=== PATIENT | male | born 1990 ===

== ENCOUNTER 2016-09-10 10:28 | Emergency (ER) | payer MEDICAID, OTHER ==
--- NOTE | 2016-09-10 11:12 | C.PDOC ---
History Of Present Illness Patient is a 25 y/o male, with PMHx of homelessness, substance abuse, alcohol abuse, and psych history, is brought to the ED by EMS for agitation. Patient has been admitted to psych flood several times in the past. Pt admits to using "dope and alcohol". As per EMS, "pt became agitated, and began to scream and curse in the ambulance". Pt is complaining of generalized body aches. Pt is now calm and cooperative in the ER. Otherwise, denies any SI/HI, or any other physical complaints at this time. Time Seen by Provider: 09/10/16 10:51 Chief Complaint (Nursing): Substance Abuse History Per: Patient History/Exam Limitations: no limitations Onset/Duration Of Symptoms: Gradual Current Symptoms Are (Timing): Still Present Suicide/Self Injury Attempted (Context): None Modifying Factor(s): Alcohol, Other ("dope") Associated Symptoms: denies: Suicidal Thoughts, Suicidal Plan Recent travel outside of the [place]: No Additional History Per: EMS Past Medical History Reviewed: Historical Data, Nursing Documentation, Vital Signs Vital Signs: Last Vital Signs Temp 98.1 F 09/10/16 16:05 Pulse 71 09/10/16 16:05 Resp 16 09/10/16 16:05 BP 132/82 09/10/16 16:05 Pulse Ox 98 09/10/16 18:20 - Medical History PMH: Anxiety, Depression Denies: Diabetes, Hepatitis, HIV, HTN, Chronic Kidney Disease, Seizures, Sexually Transmitted Disease - [facility] Procedures ALCOHOL DETOXIFICATION (01/13/14) Family History: States: Unknown Family Hx - Social History Hx Tobacco Use: Yes Hx Alcohol Use: Yes Hx Substance Use: Yes (Cocaine/heroin) - Immunization History Hx Tetanus Toxoid Vaccination: No Hx Influenza Vaccination: No Hx Pneumococcal Vaccination: No Review Of Systems Except As Marked, All Systems Reviewed And Found Negative. Constitutional: Positive for: Other (generalized body aches). Negative for: Fever, Chills Cardiovascular: Negative for: Chest Pain, Palpitations Respiratory: Negative for: Shortness of Breath Gastrointestinal: Negative for: Nausea, Vomiting, Abdominal Pain Neurological: Negative for: Headache, Dizziness Psych: Negative for: Suicidal ideation, Other (Homicidal ideation) Physical Exam - Physical Exam Appears: Non-toxic, No Acute Distress Skin: Normal Color, Warm, Dry Head: Atraumatic, Normacephalic Eye(s): bilateral: Normal Inspection, EOMI Neck: Normal ROM, Supple Chest: Symmetrical, No Tenderness Cardiovascular: Rhythm Regular, No Murmur Respiratory: Normal Breath Sounds, No Rales, No Rhonchi, No Wheezing Gastrointestinal/Abdominal: Soft, No Tenderness Extremity: Normal ROM Neurological/Psych: Oriented x3, Normal Speech, Normal Cognition ED Course And Treatment - Laboratory Results Result Diagrams: 09/10/16 11:29 09/10/16 11:29 O2 Sat by Pulse Oximetry: 98 (on RA) Pulse Ox Interpretation: Normal Progress Note: Labs, CXR ordered and reviewed. On reassessment, pt is resting comfortably, no acute distress. Patient is medically cleared. Disposition - Disposition Disposition: HOME/ ROUTINE Disposition Time: 18:18 Condition: STABLE Additional Instructions: please follow up with your doctor. return to er with worsening symptoms or concerns. follow up as instructed by broke worker Instructions: Polysubstance Abuse (ED) - Clinical Impression Clinical Impression: Substance abuse - Scribe Statement The provider has reviewed the documentation as recorded by the Andreina Valenzuela Provider Attestation: All medical record entries made by the Migueibpaz were at my direction and personally dictated by me. I have reviewed the chart and agree that the record accurately reflects my personal performance of the history, physical exam, medical decision making, and the department course for this patient. I have also personally directed, reviewed, and agree with the discharge instructions and disposition.
--- NOTE | 2016-09-10 11:15 | RAD ---
PROCEDURE: CHEST RADIOGRAPH, 1 VIEW. Portable study 11:00. HISTORY: Detox/Psy COMPARISON: None available. FINDINGS: LUNGS: Clear. PLEURA: No pneumothorax or pleural fluid seen. CARDIOVASCULAR: Normal. OSSEOUS STRUCTURES: No significant abnormalities. VISUALIZED UPPER ABDOMEN: Normal. OTHER FINDINGS: None. IMPRESSION: No active disease.
[2016-09-10 11:42] LABS: CHLORIDE 101 mmol/L (98-107); POTASSIUM 3.6 mmol/L (3.6-5.2); SODIUM 138 mmol/L (132-148)
[2016-09-10 11:44] LABS: ALB/GLOB RATIO 1.3 (1.0-2.1); ALKALINE PHOSPHATASE 71 U/L (38-126); AST/SGOT 29 U/L (17-59); BILIRUBIN,TOTAL 0.7 mg/dL (0.2-1.3); CARBON DIOXIDE 25 mmol/L (22-30); GFR AFRICAN-AMERICAN > 60; TOTAL PROTEIN 6.9 g/dL (6.3-8.3)
[2016-09-10 11:45] LABS: ALCOHOL SERUM 92 mg/dl (0-10); ALT/SGPT 24 U/L (21-72); BLOOD UREA NITROGEN 5 mg/dL (9-20); CALCIUM 8.4 mg/dl (8.6-10.4); GLUCOSE,RANDOM 86 mg/dL (75-110)
[2016-09-10 11:59] LABS: BASO % 0.5 % (0.0-2.0); EOS % 0.7 % (0.0-4.0); LYMPH # 1.9 K/uL (1.0-4.3); LYMPH % 40.9 % (20.0-40.0); MEAN CELL VOLUME 80.9 fL (80.0-94.0); MEAN CORPUSCULAR HEMOGLOBIN 27.1 pg (27.0-31.0); MEAN CORPUSCULAR HGB CONC 33.5 g/dL (33.0-37.0); MONO # 0.4 K/uL (0.0-0.8); MONO % 8.9 % (0.0-10.0); RED CELL DISTRIBUTION WIDTH 13.5 % (11.5-14.5); WHITE BLOOD COUNT 4.6 K/uL (4.8-10.8)
[2016-09-10 12:04] LABS: RBC URINE 1 /hpf (0-3); URINE BILIRUBIN NEGATIVE (NEGATIVE); URINE BLOOD 1+ (NEGATIVE); URINE COLOR Yellow (YELLOW); URINE GLUCOSE (UA) NORMAL (Normal); URINE KETONE NEGATIVE (NEGATIVE); URINE LEUKOCYTE ESTERASE NEG Leu/uL (Negative); URINE PROTEIN NEGATIVE (NEGATIVE); URINE UROBILINOGEN NORMAL mg/dL (0.2-1.0); WBC URINE < 1 /hpf (0-5)
[2016-09-10 16:07] VITALS: O2SAT 98
[2016-09-10 18:33] VITALS: BP 115/75; PULSE 76; RESP 19; TEMP 99
== END 2016-09-10 18:41 | disposition home or self-care (01) ==
LOC: C.ER 10:28 → UNDOADMIN 16:59 → C.9E 16:59 → C.ER 18:41
DX: F19.10 Other psychoactive substance abuse, uncomplicated (principal); F41.9 Anxiety disorder, unspecified; F32.9 Major depressive disorder, single episode, unspecified; Z59.0 Homelessness
CPT/HCPCS: 71010; 80053; 81001; 85025; 99285; G0480

== ENCOUNTER 2016-09-17 15:12 | Emergency (ER) | payer SELFPAY ==
[2016-09-17] MEDS ORDERED: Sodium Chloride 0.9% 1,000 ML IV ONE (15:39)
[2016-09-17] MEDS ORDERED: Sodium Chloride 0.9% 1,000 ML ONE (15:49)
[2016-09-17 16:02] LABS: BASO % 0.7 % (0.0-2.0); EOS # 0.1 K/uL (0.0-0.7); EOS % 1.2 % (0.0-4.0); HEMATOCRIT 47.5 % (35.0-51.0); LYMPH # 3.2 K/uL (1.0-4.3); LYMPH % 48.9 % (20.0-40.0); MEAN CELL VOLUME 80.6 fL (80.0-94.0); MEAN CORPUSCULAR HEMOGLOBIN 26.7 pg (27.0-31.0); MEAN CORPUSCULAR HGB CONC 33.2 g/dL (33.0-37.0); MONO # 0.6 K/uL (0.0-0.8); MONO % 8.4 % (0.0-10.0); RED CELL DISTRIBUTION WIDTH 13.6 % (11.5-14.5); WHITE BLOOD COUNT 6.6 K/uL (4.8-10.8)
[2016-09-17 16:11] LABS: CHLORIDE 101 mmol/L (98-107); POTASSIUM 4.4 mmol/L (3.6-5.2); SODIUM 138 mmol/L (132-148)
[2016-09-17 16:13] LABS: GFR AFRICAN-AMERICAN > 60
[2016-09-17 16:14] LABS: ALB/GLOB RATIO 1.3 (1.0-2.1); ALKALINE PHOSPHATASE 67 U/L (38-126); ALT/SGPT 49 U/L (21-72); AST/SGOT 82 U/L (17-59); BILIRUBIN,TOTAL 0.7 mg/dL (0.2-1.3); BLOOD UREA NITROGEN 7 mg/dL (9-20); CALCIUM 8.8 mg/dl (8.6-10.4); CARBON DIOXIDE 28 mmol/L (22-30); GLUCOSE,RANDOM 88 mg/dL (75-110)
[2016-09-17 16:15] LABS: ALCOHOL SERUM < 10 mg/dl (0-10)
--- NOTE | 2016-09-17 17:05 | C.PDOC ---
History Of Present Illness 25-year-old male, presents to the emergency department with complaints of diffuse bod pain and nausea since this morning. No vomiting, fevers, chest pain or shortness of breath. patient used two bags of Heroin two days ago. Last drink was last night. Chief Complaint (Nursing): GI Problem History Per: Patient History/Exam Limitations: no limitations Onset/Duration Of Symptoms: Days Current Symptoms Are (Timing): Still Present Past Medical History Reviewed: Historical Data, Nursing Documentation, Vital Signs Vital Signs: Last Vital Signs Temp 97.9 F 09/17/16 17:22 Pulse 61 09/17/16 17:22 Resp 17 09/17/16 17:22 BP 128/81 09/17/16 17:22 Pulse Ox 97 09/17/16 17:22 - Medical History PMH: Anxiety, Depression Denies: Diabetes, Hepatitis, HIV, HTN, Chronic Kidney Disease, Seizures, Sexually Transmitted Disease - [facility] Procedures ALCOHOL DETOXIFICATION (01/13/14) Family History: States: No Known Family Hx - Social History Hx Tobacco Use: Yes Hx Alcohol Use: Yes Hx Substance Use: Yes (Cocaine/heroin) - Immunization History Hx Tetanus Toxoid Vaccination: No Hx Influenza Vaccination: No Hx Pneumococcal Vaccination: No Review Of Systems Except As Marked, All Systems Reviewed And Found Negative. Constitutional: Positive for: Malaise. Negative for: Fever, Chills Cardiovascular: Negative for: Chest Pain Respiratory: Negative for: Shortness of Breath Gastrointestinal: Positive for: Nausea. Negative for: Vomiting Neurological: Negative for: Weakness, Numbness Physical Exam - Physical Exam Appears: Non-toxic, No Acute Distress Skin: Normal Color, Warm, Dry Head: Atraumatic, Normacephalic Eye(s): bilateral: Normal Inspection, PERRL, EOMI Nose: Normal Throat: Normal Neck: Normal Cardiovascular: Rhythm Regular Respiratory: Normal Breath Sounds Gastrointestinal/Abdominal: Normal Exam Back: Normal Inspection Extremity: Normal ROM ED Course And Treatment - Laboratory Results Result Diagrams: 09/17/16 15:59 09/17/16 15:59 O2 Sat by Pulse Oximetry: 98 Medical Decision Making Medical Decision Makin:10pm: Patient feeling better. Labs reviewed. Patient to be discharged with Rx and follow up instructions. Disposition - Disposition Referrals: [facility] [Outside] [facility] [Outside] Disposition: HOME/ ROUTINE Disposition Time: 17:45 Condition: IMPROVED Additional Instructions: Thank you for letting us take care of you today. You were treated for effects of drug abuse. The emergency medical care you received today was directed at your acute symptoms. If you were prescribed any medication, please fill it and take as directed. It may take several days for your symptoms to resolve. Return to the Emergency Department if your symptoms worsen, do not improve, or if you have any other problems. Please contact your doctor or call one of the physicians/clinics you have been referred to that are listed on the Patient Visit Information form that is included in your discharge packet. Bring any paperwork you were given at discharge with you along with any medications you are taking to your follow up visit. Our treatment cannot replace ongoing medical care by a primary care provider (PCP) outside of the emergency department. Thank you for allowing the [facility] team to be part of your care today. Follow up in the clinic in 3-4 days for outpatient care. Prescriptions: Ondansetron ODT [Zofran ODT] 8 mg PO Q8 PRN #20 odt PRN Reason: Nausea/Vomiting Instructions: Polysubstance Abuse (ED) - Clinical Impression Clinical Impression: Drug abuse - Scribe Statement The provider has reviewed the documentation as recorded by the Migueibpaz Del Cid All medical record entries made by the Migueibpaz were at my direction and personally dictated by me. I have reviewed the chart and agree that the record accurately reflects my personal performance of the history, physical exam, medical decision making, and the department course for this patient. I have also personally directed, reviewed, and agree with the discharge instructions and disposition.
[2016-09-17 17:25] LABS: RBC URINE 5 /hpf (0-3); URINE BACTERIA RARE (<OCC); URINE BILIRUBIN NEGATIVE (NEGATIVE); URINE BLOOD NEGATIVE (NEGATIVE); URINE COLOR Yellow (YELLOW); URINE GLUCOSE (UA) NORMAL (Normal); URINE KETONE NEGATIVE (NEGATIVE); URINE LEUKOCYTE ESTERASE NEG Leu/uL (Negative); URINE PROTEIN 1+ mg/dL (NEGATIVE); WBC URINE 3 /hpf (0-5)
[2016-09-17] MEDS ORDERED: guaiFENesin 100 mg/5 ml Syrup UD PO STA (18:46)
[2016-09-17] MEDS ORDERED: guaiFENesin 100 mg/5 ml Syrup UD ONE (18:54)
[2016-09-17 19:30] VITALS: RESP 20
[2016-09-17 21:35] VITALS: BP 116/75; PULSE 66; TEMP 98.7; O2SAT 96
--- NOTE | 2016-09-18 09:19 | RAD ---
HISTORY: r/o infiltrate COMPARISON: 09/10/2016 TECHNIQUE: Chest PA and lateral FINDINGS: LUNGS: No active pulmonary disease. PLEURA: No significant pleural effusion identified. No pneumothorax apparent. CARDIOVASCULAR: Normal. OSSEOUS STRUCTURES: No significant abnormalities. VISUALIZED UPPER ABDOMEN: Normal. OTHER FINDINGS: None. IMPRESSION: No active disease.
--- NOTE | 2016-09-18 12:52 | CARD ---
APPROVED REPORT EKG Measurement Heart [id number] <Conclusion> Sinus bradycardia Early repolarization Otherwise normal ECG
== END 2016-09-17 22:16 | disposition short-term general hospital (02) ==
LOC: C.ER 15:12
DX: F19.10 Other psychoactive substance abuse, uncomplicated (principal); F33.9 Major depressive disorder, recurrent, unspecified; F17.210 Nicotine dependence, cigarettes, uncomplicated
CPT/HCPCS: 71020; 80053; 81001; 83690; 85025; 93005; 94770; 96361; 96374; 96375; 99284; G0480; J2405; J7040

== ENCOUNTER 2016-10-16 07:29 | Observation (INO) | payer OTHER ==
--- NOTE | 2016-10-16 08:14 | C.PDOC ---
History Of Present Illness 25-year-old male, is to the emergency department by EMS, after being seen walking around on street with unsteady gait. Patient admits to using "dope." States "I snort it." Patient denies SI or any other complaints. Time Seen by Provider: 10/16/16 07:37 Chief Complaint (Nursing): Substance Abuse History Per: Patient, EMS History/Exam Limitations: intoxication Current Symptoms Are (Timing): Still Present Modifying Factor(s): Other ("dope") Past Medical History Reviewed: Historical Data, Nursing Documentation, Vital Signs Vital Signs: Last Vital Signs Temp 98.2 F 10/16/16 10:45 Pulse 58 L 10/16/16 13:13 Resp 17 10/16/16 13:13 BP 135/71 10/16/16 13:13 Pulse Ox 94 L 10/16/16 15:57 - Medical History PMH: Anxiety, Depression - [facility] Procedures ALCOHOL DETOXIFICATION (01/13/14) Family History: States: Other Other Family History: non-contributory - Social History Hx Tobacco Use: Yes Hx Alcohol Use: Yes Hx Substance Use: Yes (Cocaine/heroin) - Immunization History Hx Tetanus Toxoid Vaccination: No Hx Influenza Vaccination: No Hx Pneumococcal Vaccination: No Review Of Systems Constitutional: Negative for: Fever Cardiovascular: Negative for: Chest Pain, Palpitations Respiratory: Negative for: Shortness of Breath Gastrointestinal: Negative for: Vomiting Psych: Negative for: Suicidal ideation Physical Exam - Physical Exam Appears: Non-toxic, No Acute Distress, Unkempt, Other (Sleepy. Easily aroused) Skin: Warm, Dry, No Rash Head: Atraumatic, Normacephalic Eye(s): bilateral: Normal Inspection Neck: Normal ROM Cardiovascular: Rhythm Regular, No Murmur Respiratory: No Accessory Muscle Use Extremity: Normal ROM Neurological/Psych: Oriented x3 ED Course And Treatment O2 Sat by Pulse Oximetry: 94 Medical Decision Making Medical Decision Makin pt now A&Ox3, tolerating po, and ambulatory with steady gait ED OBSERVATION Discharge: Yes Date of observation admission: 10/16/16 Time of observation admission: 07:48 - Observation admission statement Patient is being placed in observation because:: Intoxication - Goals of Observation Goals of observation are:: Sobriety Disposition - Disposition Disposition: HOME/ ROUTINE Disposition Time: 15:57 Condition: IMPROVED - Clinical Impression Clinical Impression: Drug abuse - PA / STATION MASTER / Resident Statement MD/DO has reviewed & agrees with the documentation as recorded. - Scribe Statement The provider has reviewed the documentation as recorded by the Scribe (Marco Antonio Del Cid) All medical record entries made by the Scribe were at my direction and personally dictated by me. I have reviewed the chart and agree that the record accurately reflects my personal performance of the history, physical exam, medical decision making, and the department course for this patient. I have also personally directed, reviewed, and agree with the discharge instructions and disposition.
[2016-10-16 10:46] VITALS: TEMP 98.2
[2016-10-16 13:13] VITALS: BP 135/71; PULSE 58; RESP 17
[2016-10-16 15:58] VITALS: O2SAT 94
== END 2016-10-16 15:57 | disposition home or self-care (01) ==
LOC: C.ER 07:29 → C.9OBSV 07:45
PROVIDERS: ADMIT Emergency Medicine; ATTEND Emergency Medicine
DX: F19.10 Other psychoactive substance abuse, uncomplicated (principal); Z87.891 Personal history of nicotine dependence
CPT/HCPCS: 82948; 99284; G0378

== ENCOUNTER 2016-12-31 14:57 | Emergency (ER) | payer MEDICAID, OTHER ==
[2016-12-31 14:57] VITALS: BMI 26.9
[2016-12-31 15:18] VITALS: RESP 18; O2SAT 98
--- NOTE | 2016-12-31 15:46 | C.PDOC ---
History Of Present Illness Patient is a 26 y/o homeless male who presents to the ED requesting detox for alcohol and drug abuse. Last use of heroin was snorted yesterday; last drink was a beer yesterday. Usually drinks daily. Patient complains of body aches, but denies any other medical problems at this time. Time Seen by Provider: 12/31/16 15:30 Chief Complaint (Nursing): Substance Abuse History Per: Patient History/Exam Limitations: no limitations Onset/Duration Of Symptoms: Days Current Symptoms Are (Timing): Still Present Modifying Factor(s): Alcohol, Other (heroin.) Recent travel outside of the [place]: No Past Medical History Reviewed: Historical Data, Nursing Documentation, Vital Signs Vital Signs: Last Vital Signs Temp 98.1 F 12/31/16 15:15 Pulse 72 12/31/16 15:15 Resp 18 12/31/16 15:15 BP 133/66 12/31/16 15:15 Pulse Ox 98 12/31/16 18:25 - Medical History PMH: Anxiety, Depression Denies: Atrial Fibrillation, HIV, HTN, Kidney Stones, Chronic Kidney Disease , Seizures, Sexually Transmitted Disease Surgical History: No Surg Hx - [facility] Procedures ALCOHOL DETOXIFICATION (01/13/14) Family History: States: No Known Family Hx - Social History Hx Tobacco Use: Yes Hx Alcohol Use: Yes Hx Substance Use: Yes - Immunization History Hx Tetanus Toxoid Vaccination: No Hx Influenza Vaccination: No Hx Pneumococcal Vaccination: No Review Of Systems Constitutional: Negative for: Fever, Chills Cardiovascular: Negative for: Chest Pain Respiratory: Negative for: Shortness of Breath Gastrointestinal: Negative for: Nausea, Vomiting Physical Exam - Physical Exam Appears: In Acute Distress, Other (tremulous.) Skin: Normal Color, Warm, Dry Head: Atraumatic, Normacephalic Oral Mucosa: Moist Chest: Symmetrical Cardiovascular: Rhythm Regular, No Murmur Respiratory: Normal Breath Sounds, No Rales, No Rhonchi, No Wheezing Gastrointestinal/Abdominal: Soft, No Tenderness Neurological/Psych: Oriented x3, Normal Cognition ED Course And Treatment - Laboratory Results Result Diagrams: 12/31/16 16:53 12/31/16 16:53 O2 Sat by Pulse Oximetry: 98 (Room air) Pulse Ox Interpretation: Normal Medical Decision Making Medical Decision Making: Plan: Blood work and urinalysis ordered. Disposition Counseled Patient/Family Regarding: Studies Performed, Diagnosis - Disposition Disposition: HOSPITALIZED Disposition Time: 18:25 Condition: GUARDED - Clinical Impression Clinical Impression: Drug dependence - Scribe Statement The provider has reviewed the documentation as recorded by the Scribe Oliva Brown All medical record entries made by the Scribe were at my direction and personally dictated by me. I have reviewed the chart and agree that the record accurately reflects my personal performance of the history, physical exam, medical decision making, and the department course for this patient. I have also personally directed, reviewed, and agree with the discharge instructions and disposition. Physician Patient Turnover Patient Signed Over To: Mina Viveros Handoff Comments: pending final dispo by crisis, needs admit order Decision To Admit - Pt Status Changed To: Hospital Disposition Of: Inpatient - Admit Certification Admit to Inpatient:: After my assessment, the patient will require hospitalization for at least two midnights. This is because of the severity of symptoms shown, intensity of services needed, and/or the medical risk in this patient being treated as an outpatient. - InPatient: Physician Admission Certification: I certify that this patient requires 2 or more midnights of care for the following reason:: needs inpatient detox - . Bed Request Type: Detox Admitting Physician: Itzel Jerry Patient Diagnosis: Drug dependence
[2016-12-31 16:55] LABS: BASO % 0.5 % (0.0-2.0); EOS % 0.3 % (0.0-4.0); HEMATOCRIT 47.3 % (35.0-51.0); LYMPH # 1.3 K/uL (1.0-4.3); MEAN CELL VOLUME 81.6 fL (80.0-94.0); MEAN CORPUSCULAR HEMOGLOBIN 27.1 pg (27.0-31.0); MEAN CORPUSCULAR HGB CONC 33.2 g/dL (33.0-37.0); MEAN PLATELET VOLUME 7.7 fL (7.2-11.7); MONO # 0.4 K/uL (0.0-0.8); MONO % 6.3 % (0.0-10.0); NRBC % 0.1 % (0.0-2.0); RED CELL DISTRIBUTION WIDTH 13.3 % (11.5-14.5); WHITE BLOOD COUNT 5.8 K/uL (4.8-10.8)
[2016-12-31 17:09] LABS: CHLORIDE 100 mmol/L (98-107)
[2016-12-31 17:10] LABS: POTASSIUM 4.3 mmol/L (3.6-5.2); SODIUM 136 mmol/L (132-148)
[2016-12-31 17:12] LABS: ALB/GLOB RATIO 1.3 (1.0-2.1); ALKALINE PHOSPHATASE 77 U/L (38-126); ALT/SGPT 41 U/L (21-72); AST/SGOT 61 U/L (17-59); BLOOD UREA NITROGEN 12 mg/dL (9-20); CARBON DIOXIDE 26 mmol/L (22-30); GFR AFRICAN-AMERICAN > 60; GLUCOSE,RANDOM 127 mg/dL (75-110); TOTAL PROTEIN 7.5 g/dL (6.3-8.3)
[2016-12-31 17:13] LABS: ALCOHOL SERUM < 10 mg/dl (0-10); CALCIUM 8.8 mg/dl (8.6-10.4)
[2016-12-31 17:24] LABS: RBC URINE 17 /hpf (0-3); URINE BACTERIA RARE (<OCC); URINE BILIRUBIN NEGATIVE (NEGATIVE); URINE BLOOD 2+ (NEGATIVE); URINE COLOR Yellow (YELLOW); URINE GLUCOSE (UA) NORMAL (Normal); URINE KETONE 2+ mg/dL (NEGATIVE); URINE LEUKOCYTE ESTERASE NEG Leu/uL (Negative); URINE PROTEIN 1+ mg/dL (NEGATIVE); WBC URINE 2 /hpf (0-5)
[2016-12-31 20:57] VITALS: BP 122/79; PULSE 96; TEMP 98.4
== END 2016-12-31 21:22 | disposition home or self-care (01) ==
LOC: C.ER 14:57
DX: F19.20 Other psychoactive substance dependence, uncomplicated (principal)
CPT/HCPCS: 36415; 80053; 81001; 85025; 99285; G0480

== ENCOUNTER 2017-05-02 14:29 | Inpatient (IN) | payer MEDICAID, OTHER ==
[2017-05-02 14:29] VITALS: BMI 23.1
--- NOTE | 2017-05-02 15:26 | C.PDOC ---
History Of Present Illness 26 y/o male with history of depression presents to ED for psych evaluation. Patient states he feels depressed and has suicidal ideation with plan of "cutting himself". Patient has prior psych evaluations and admits to smoking and drinking etoh. Patient reports last drink was yesterday and currently denies any withdrawal signs, homicidal ideation, chest pain, nausea or any other complaints at this time. Time Seen by Provider: 05/02/17 14:58 Chief Complaint (Nursing): Psychiatric Evaluation History Per: Patient History/Exam Limitations: no limitations Onset/Duration Of Symptoms: Days Current Symptoms Are (Timing): Still Present Suicide/Self Injury Attempted (Context): None Modifying Factor(s): Alcohol Past Medical History Reviewed: Historical Data, Nursing Documentation, Vital Signs Vital Signs: Last Vital Signs Temp 97.6 F 05/02/17 14:34 Pulse 86 05/02/17 14:34 Resp 18 05/02/17 14:34 BP 119/71 05/02/17 14:34 Pulse Ox 100 05/02/17 17:35 - Medical History PMH: Anxiety, Depression Surgical History: No Surg Hx - [facility] Procedures ALCOHOL DETOXIFICATION (01/13/14) Family History: States: No Known Family Hx - Social History Hx Tobacco Use: Yes Hx Alcohol Use: Yes Hx Substance Use: Yes - Immunization History Hx Tetanus Toxoid Vaccination: No Hx Influenza Vaccination: No Hx Pneumococcal Vaccination: No Review Of Systems Constitutional: Negative for: Fever, Chills Gastrointestinal: Negative for: Nausea, Vomiting Skin: Negative for: Rash Neurological: Negative for: Weakness, Numbness, Headache Psych: Positive for: Depression, Suicidal ideation. Negative for: Withdrawal Physical Exam - Physical Exam Appears: Non-toxic, No Acute Distress Skin: Normal Color, Warm, Dry, No Rash Head: Atraumatic, Normacephalic Eye(s): bilateral: Normal Inspection Oral Mucosa: Moist Neck: Normal ROM, Supple Cardiovascular: Rhythm Regular Respiratory: Normal Breath Sounds, No Rales, No Rhonchi, No Wheezing Gastrointestinal/Abdominal: Soft, No Tenderness, No Guarding, No Rebound Extremity: Normal ROM, Capillary Refill (<2 seconds) Neurological/Psych: Oriented x3 ED Course And Treatment - Laboratory Results Result Diagrams: 05/02/17 15:22 05/02/17 15:22 Lab Interpretation: Normal O2 Sat by Pulse Oximetry: 100 (RA) Pulse Ox Interpretation: Normal Progress Note: Case discussed and patient evaluated by needleworker who discussed case with Dr Crain who agrees to psych admission. Patient admitted in stable condition Reassessment Condition: Unchanged - Physician Consult Information Physician Contacted: Loida Crain Outcome Of Conversation: admit Medical Decision Making Medical Decision Making: Plan: ED 1:1 observation ordered, Crisis evaluation Disposition Discussed With Dr.: Loida Crain Doctor Will See Patient In The: Hospital - Disposition Disposition: HOSPITALIZED Disposition Time: 15:45 Condition: STABLE Forms: [facility] (Hebrew) - POA Present On Arrival: None - Clinical Impression Clinical Impression: Depression - PA / IRRIGATION SPECIALIST / Resident Statement MD/DO has reviewed & agrees with the documentation as recorded. - Scribe Statement The provider has reviewed the documentation as recorded by the Migueibpaz Pinto All medical record entries made by the Migueibpaz were at my direction and personally dictated by me. I have reviewed the chart and agree that the record accurately reflects my personal performance of the history, physical exam, medical decision making, and the department course for this patient. I have also personally directed, reviewed, and agree with the discharge instructions and disposition. Decision To Admit - Pt Status Changed To: Hospital Disposition Of: Inpatient - Admit Certification Admit to Inpatient:: After my assessment, the patient will require hospitalization for at least two midnights. This is because of the severity of symptoms shown, intensity of services needed, and/or the medical risk in this patient being treated as an outpatient. - InPatient: Physician Admission Certification: I certify that this patient requires 2 or more midnights of care for the following reason:: Depression - . Bed Request Type: Psychiatry Admitting Physician: Loida Crain Patient Diagnosis: Depression
[2017-05-02 15:27] LABS: BASO % 0.6 % (0.0-2.0); EOS # 0.1 K/uL (0.0-0.7); EOS % 1.8 % (0.0-4.0); HEMOGLOBIN 15.2 g/dL (12.0-18.0); LYMPH # 2.2 K/uL (1.0-4.3); LYMPH % 37.6 % (20.0-40.0); MEAN CELL VOLUME 83.5 fL (80.0-94.0); MEAN CORPUSCULAR HGB CONC 33.6 g/dL (33.0-37.0); MEAN PLATELET VOLUME 7.5 fL (7.2-11.7); MONO # 0.4 K/uL (0.0-0.8); MONO % 6.9 % (0.0-10.0); NEUT # 3.1 K/uL (1.8-7.0); NEUT % 53.1 % (50.0-75.0); RBC 5.43 Mil/uL (4.40-5.90); RED CELL DISTRIBUTION WIDTH 13.4 % (11.5-14.5); WHITE BLOOD COUNT 5.8 K/uL (4.8-10.8)
[2017-05-02 15:41] LABS: ALB/GLOB RATIO 1.3 (1.0-2.1); ALT/SGPT 32 U/L (21-72); AST/SGOT 40 U/L (17-59); BLOOD UREA NITROGEN 13 mg/dL (9-20); CALCIUM 8.9 mg/dl (8.6-10.4); GFR AFRICAN-AMERICAN > 60; GFR NON-AFRICAN AMERICAN > 60
[2017-05-02 16:32] LABS: BARBITURATES, UR NEGATIVE (NEGATIVE); BENZODIAZEPINES, UR NEGATIVE (NEGATIVE); PHENCYCLIDINE, UR NEGATIVE (NEGATIVE)
[2017-05-02 16:33] LABS: OPIATES, UR POSITIVE (NEGATIVE)
[2017-05-02 16:37] LABS: URINE BACTERIA OCC (<OCC); URINE BILIRUBIN NEGATIVE (NEGATIVE); URINE BLOOD 1+ (NEGATIVE); URINE CLARITY Hazy (Clear); URINE COLOR Yellow (YELLOW); URINE GLUCOSE (UA) NORMAL (Normal); URINE LEUKOCYTE ESTERASE 3+ Leu/uL (Negative); URINE NITRATE NEGATIVE (NEGATIVE); URINE PROTEIN NEGATIVE (NEGATIVE)
--- NOTE | 2017-05-02 19:21 | PCM.BM ---
<AbrahamCindi becerra - Last Filed: 05/02/17 19:19> Treatment Plan Problems - Problems identified on initial assessmt Depression Date Initiated: 05/02/17 Time Initiated: 18:40 Assessment reference: NA Status: Active Anxiety Date Initiated: 05/02/17 Time Initiated: 18:40 Assessment reference: NA Status: Active Substance Abuse Date Initiated: 05/02/17 Time Initiated: 18:40 Assessment reference: NA Status: Active Treatment assets and liabiliti Patient Assests: adapts well, cooperative, ADL independent, physically healthy, negotiates basic needs, cognitively intact Patient Liabilities: live alone, financial problems, substance abuse - Milieu Protocol Maintain good personal hygiene: daily Encourage regular showers, daily Remind patient to perform daily oral care, daily Assist patient to perform ADL's Conduct patient checks and document Observation sheet: Q15 minutes Maintain personal safety: every shift Educate patient to report safety concerns to staff, every shift Monitor environment for contraband/sharps Medication safety: Monitor for expected outcome, potential side effects: every shift, Assess barriers to learning: every shift, Assess readiness for medication education: every shift <Rosalino,Itzel - Last Filed: 05/04/17 11:01> - Diagnosis (1) Depression Status: Acute Interventions: 05/04/17 11:01 * Assess/adjust medications daily and /or as needed * See patient on an individual basis 7x/week to assess symptoms of depression * Monitor for side effects & effectiveness of medications * (2) Alcohol withdrawal Status: Acute Interventions: 05/04/17 11:01 * Assess 7x/week regarding severity of withdrawal * Educate regarding risks, benefits, side effects and alternatives of medications * Use Motivational Interviewing for abstinence * Use CBT for relapse prevention * Medication management for withdrawal symptoms * Encourage medication assisted treatment *
[2017-05-03] MEDS: Multiple Vitamins Tab PO SCH (09:37)
--- NOTE | 2017-05-03 20:54 | PCM.PSYCH ---
Initial Psychiatric Evaluation - Initial Psychiatric Evaluation Type of Admission: Voluntary Legal Status: Capacity Chief Complaint (in patient's own words): I was feeling depressed and suicidal.' History of Present Illness and Precipitating Events: Pt is a 26 year old HM, currently homeless and unemployed, came to the ED for depressed mood and suicidal ideation. As per the ED notes, ''pt reported suicidal ideation since 1 day and denied a specific plan to harm himself. He denied any previous suicide attempts in the past, but stated the suicidal thoughts were prompted yesterday because "of life. " Pt stated he has been homeless for several months since incarcerated. Pt stated he has family in the area, but has not reached out to them, and "wouldn' t say" he has a poor relationship where he could not ask for help. Pt stated he has a history of psychiatric admissions in 2014 at [facility] and in 2017 at [facility], following transfer from [facility]. Pt stated he has a history of cutting in the past to "relieve tension," but has not had an episode or urges in "years. " Pt denied following up with aftercare following both admissions, nor has he been on psychiatric medication in the past aside from when he is in the hospital. Pt reported that he drinks alcohol daily, last use yesterday when he consumed 5-6 beers. Pt stated he sniffed an unspecified amount of cocaine x2 days ago. Pt states he has attended [employer] 2-3 years ago. Pt also reported that he is abusing 2-3 bags of heroin daily, last used yesterday.'' Pt remained isolated and withdrawn in the unit. He reports depressed mood and feelings of hopelessness and worthlessness. He reports withdrawal symptoms, including nausea, cramps, anxiety, headaches and joint pains. He denies any HI. He also denies any AVH or any delusions. PMH: UTI (current) Current Medications: Active Medications Generic Name Dose Route Start Last Admin Trade Name Freq PRN Reason Stop Dose Admin Ciprofloxacin 500 mg 05/03/17 10:30 05/03/17 17:56 Cipro PO 500 mg BID WISAM Administration Clonidine HCl 0.1 mg 05/02/17 17:55 Catapres PO Q8 PRN COWS Score More or Equal to 5 Folic Acid 1 mg 05/03/17 10:00 05/03/17 09:37 Folic Acid PO 1 mg DAILY WISAM Administration Hydroxyzine HCl 25 mg 05/02/17 21:45 Atarax PO TID PRN Anxiety Ibuprofen 400 mg 05/02/17 17:55 Motrin Tab PO Q6 PRN Pain, moderate (4-7) Loperamide HCl 2 mg 05/02/17 17:55 Imodium PO Q8 PRN Diarrhea Multivitamins 1 tab 05/03/17 10:00 05/03/17 09:37 Hexavitamin PO 1 tab DAILY WISAM Administration Ondansetron HCl 4 mg 05/02/17 17:55 Zofran Tab PO Q8 PRN Nausea/Vomiting Thiamine HCl 100 mg 05/03/17 10:00 05/03/17 09:37 Vitamin B1 Tab PO 100 mg DAILY WISAM Administration Trazodone HCl 50 mg 05/03/17 22:00 Desyrel PO HS WISAM Past Psychiatric History - Past Psychiatric History Previous Treatment History: Inpatient Pertinent Medical Hx (Current Medical&Sleep Prob, Allergies): Allergies Allergy/AdvReac Type Severity Reaction Status Date / Time No Known Allergies Allergy Verified 12/31/16 15:27 No Known Home Med 09/17/16 No Known Home Med 10/16/16 Review of Systems - Review of Systems All systems: reviewed and no additional remarkable complaints except - Psychiatric Psychiatric: Anxiety, Irritability, Suicidal Ideation Mental Status Examination - Personal Presentation Personal Presentation: Looks stated age - Affect Affect: Constricted, Depressed - Motor Activity Motor Activity: Calm - Reliability in Providing Information Reliability in Providing Information: Fair - Speech Speech: Organized - Mood Mood: Depressed, Anxious - Formal Thought Process Formal Thought Process: No Impairment - Obsessions/Compulsions Obsessions: No Compulsions: No - Cognitive Functions Orientation: Person, Place, Situation, Time Sensorium: Alert Attention/Concentration: Attentive Abstract Thinking: [place] Estimate of Intelligence: Below average Judgement: Imparied, as evidence by: Poor judgement, Imparied, as evidence by: Lack of insight into illness - Risk Risk: Suicidal, Withdrawal, Diminished functioning - Strength & Assets Inventory Strength & Assets Inventory: Intelligence - Limitations Limitations: Living alone DSM 5 DX - DSM 5 DSM 5 Diagnosis: Major depressive disorder recurrent severe without psychotic features Opioid use disorder severe Opioid withdrawal Alcohol use disorder severe Cocaine use disorder moderate - Recommended/Plan of Treatment Treatment Recommendations and Plan of Treatment: Major depressive disorder recurrent severe without psychotic features CBT Psychoeducation Supportive therapy, group therapy, individual therapy Paxil 10 mg by mouth twice a day Neurontin 100 mg by mouth 3 times a day Trazodone 50 mg by mouth daily at bedtime Opioid use disorder severe CBT Psychoeducation Supportive therapy, individual therapy Use GA for abstinence Opioid withdrawal CBT Psychoeducation Supportive therapy, individual therapy Clonidine when necessary Methadone taper Alcohol use disorder severe CBT Psychoeducation Supportive therapy, individual therapy Use GA for abstinence Cocaine use disorder moderate Monitor signs and symptoms Use GA for abstinence UTI Start antibiotics - Smoking Cessation Smoking Cessation Initiated: No
[2017-05-04 06:38] VITALS: TEMP 98.1
[2017-05-04] MEDS: Multiple Vitamins Tab PO SCH (09:36)
--- NOTE | 2017-05-04 10:57 | PCM.PYCHPN ---
Psychiatric Progress Note - Psychiatric Progress Note Patient seen today, length of contact: 15 min Patient Chief Complaint: I was feeling depressed and suicidal.' Problems Identified/Issues Discussed: Patient seen and evaluated, chart reviewed and discussed with the nurse. Patient reports depressed mood and at times feelings of hopelessness and helplessness. As per the staff patient remained isolated and withdrawn. Patient also reports withdrawal symptoms including cramps, nausea, anxiety, and headaches. He is compliant with the medications and denies any side effects. He needs more time for stabilization. Supportive therapy and psychoeducation were given. Medication Change: Yes (methadone taper) Medical Record Reviewed: Yes Mental Status Examination - Cognitive Function Orientation: Person, Place, Situation, Time Memory: Intact Attention: WNL Concentration: Poor Fund of Knowledge: Poor - Mood Mood: Depressed, Anxious - Affect Affect: Constricted, Depressed - Speech Speech: Soft - Formal Thought Process Formal Thought Process: No Impairment - Suicidal Ideation Suicidal Ideation: No - Homicidal Ideation Homicidal Ideation: No Goal/Treatment Plan - Goal/Treatment Plan Need for Continued Stay: Severe depression anxiety, Severe functional impairment Progress Toward Problem(s) and Goals/Treatment Plan: Major depressive disorder recurrent severe without psychotic features CBT Psychoeducation Supportive therapy, group therapy, individual therapy Paxil 10 mg by mouth twice a day Neurontin 100 mg by mouth 3 times a day Trazodone 50 mg by mouth daily at bedtime Opioid use disorder severe CBT Psychoeducation Supportive therapy, individual therapy Use [place] for abstinence Opioid withdrawal CBT Psychoeducation Supportive therapy, individual therapy Clonidine when necessary Methadone taper Alcohol use disorder severe CBT Psychoeducation Supportive therapy, individual therapy Use NC for abstinence Cocaine use disorder moderate Monitor signs and symptoms Use NC for abstinence UTI Start antibiotics - Smoking Cessation Smoking Cessation Initiated: No
[2017-05-05 06:28] VITALS: BP 113/78; PULSE 72; RESP 20; O2SAT 98
[2017-05-05] MEDS: Multiple Vitamins Tab PO SCH (10:19)
--- NOTE | 2017-05-05 17:47 | PCM.PYCHDC ---
Mental Status Examination - Mental Status Examination Orientation: Person Discharge Summary - Discharge Note Consultations:: List each consultation separately and include: 1. Reason for request. 2. Findings. 3. Follow-up Summary of Hospital Course include:: 1. Description of specific treatment plan utilized for patients during their course of treatmen. 2. Summarize the time- course for resolution of acute symptoms and/or regressed behaviors. 3. Describe issues identified and worked on during hospitalization. 4. Describe medication utilized. 5. Describe medical problems identified and treated. 6. Reassessment of suicide risk - Final Diagnosis (DSM 5) Condition upon Discharge: IMPROVED DSM 5: Major depressive disorder recurrent severe without psychotic features Opioid use disorder severe Opioid withdrawal Alcohol use disorder severe Cocaine use disorder moderate Disposition: AGAINST MEDICAL ADVICE
== END 2017-05-05 15:30 | disposition left against medical advice (07) | DRG 430 ==
LOC: C.ER 14:29 → C.5E 17:32
PROVIDERS: ADMIT Psychiatry & Neurology Psychiatry; ATTEND Psychiatry & Neurology Psychiatry
PROC: GZ3ZZZZ Medication Management (ICD-10-PCS; principal; 2017-05-02)
PROC: GZHZZZZ Group Psychotherapy (ICD-10-PCS; 2017-05-02)
PROC: GZ56ZZZ Individual Psychotherapy, Supportive (ICD-10-PCS; 2017-05-02)
PROC: HZ89ZZZ Medication Management for Substance Abuse Treatment, Other Replacement Medication (ICD-10-PCS; 2017-05-02)
PROC: HZ46ZZZ Group Counseling for Substance Abuse Treatment, Psychoeducation (ICD-10-PCS; 2017-05-02)
PROC: HZ56ZZZ Individual Psychotherapy for Substance Abuse Treatment, Psychoeducation (ICD-10-PCS; 2017-05-02)
DX: F33.2 Major depressive disorder, recurrent severe without psychotic features (principal); F11.23 Opioid dependence with withdrawal; F14.20 Cocaine dependence, uncomplicated; R45.851 Suicidal ideations; F10.239 Alcohol dependence with withdrawal, unspecified; N39.0 Urinary tract infection, site not specified; F41.9 Anxiety disorder, unspecified; Z59.0 Homelessness; Z87.891 Personal history of nicotine dependence; Z91.5 Personal history of self-harm

== ENCOUNTER 2018-04-13 10:15 | Emergency (ER) | payer MEDICAID ==
[2018-04-13 10:15] VITALS: BMI 23.1
[2018-04-13 10:25] VITALS: BP 130/78; PULSE 89; RESP 17; TEMP 98.9; O2SAT 98
== END 2018-04-13 10:35 | disposition left against medical advice (07) ==
LOC: C.ER 10:15
DX: Z02.89 Encounter for other administrative examinations (principal); M25.562 Pain in left knee

== ENCOUNTER 2018-06-14 21:21 | Emergency (ER) | payer MEDICAID ==
[2018-06-14 21:21] VITALS: BMI 28.7
--- NOTE | 2018-06-14 21:33 | C.PDOC ---
Time Seen by Provider: 06/14/18 21:28 Chief Complaint (Nursing): Medical Clearance Past Medical History - Medical History PMH: Anxiety, Depression Denies: Atrial Fibrillation, Diabetes, Hepatitis, HIV, HTN, Kidney Stones, Chronic Kidney Disease, Seizures, Sexually Transmitted Disease - [facility] Procedures ALCOHOL DETOXIFICATION (01/13/14) GROUP GASOLINE CATALYST OPERATOR FOR SUBSTANCE ABUSE TREATMENT, PSYCHOEDUCATION (05/02/17) GROUP PSYCHOTHERAPY (04/19/18) INDIV PSYCHOTHERAPY FOR SUBSTANCE ABUSE, PSYCHOEDUCATION (05/02/17) INDIVIDUAL PSYCHOTHERAPY, SUPPORTIVE (05/02/17) MEDICATION MANAGEMENT (05/02/17) MEDS MGMT FOR SUBSTANCE ABUSE TREATMENT, OTH REPL MED (05/02/17) Family History: States: Unknown Family Hx - Social History Hx Tobacco Use: Yes Hx Alcohol Use: Yes Hx Substance Use: Yes - Immunization History Hx Tetanus Toxoid Vaccination: No Hx Influenza Vaccination: No Hx Pneumococcal Vaccination: No Medical Decision Making Medical Decision Making: alcohol abuse h/o alcohol and psych no acute injuries sedated for his safety and safety of staff/police/EMS Disposition Doctor Will See Patient In The: Office Counseled Patient/Family Regarding: Studies Performed, Diagnosis - Disposition Disposition: RELEASED IN [employer]ICE C[employer] Disposition Time: 21:34 Condition: GOOD - Clinical Impression Clinical Impression: Alcohol abuse
[2018-06-14 23:31] LABS: BASO % 0.4 % (0.0-2.0); EOS # 0.1 K/uL (0.0-0.7); EOS % 1.5 % (0.0-4.0); HEMOGLOBIN 15.4 g/dL (12.0-18.0); LYMPH # 2.3 K/uL (1.0-4.3); LYMPH % 35.1 % (20.0-40.0); MEAN CELL VOLUME 81.7 fL (80.0-94.0); MEAN CORPUSCULAR HEMOGLOBIN 26.9 pg (27.0-31.0); MEAN PLATELET VOLUME 7.8 fL (7.2-11.7); MONO # 0.4 K/uL (0.0-0.8); MONO % 6.4 % (0.0-10.0); NEUT # 3.6 K/uL (1.8-7.0); NEUT % 56.6 % (50.0-75.0); NRBC % 0.1 % (0.0-2.0); RBC 5.72 Mil/uL (4.40-5.90); RED CELL DISTRIBUTION WIDTH 13.7 % (11.5-14.5); WHITE BLOOD COUNT 6.4 K/uL (4.8-10.8)
[2018-06-14 23:48] LABS: ALB/GLOB RATIO 1.5 (1.0-2.1); ALBUMIN 4.8 g/dL (3.5-5.0); ALT/SGPT 27 U/L (21-72); AST/SGOT 58 U/L (17-59); BLOOD UREA NITROGEN 9 mg/dL (9-20); CALCIUM 9.1 mg/dl (8.6-10.4); GFR NON-AFRICAN AMERICAN > 60
[2018-06-15 00:18] LABS: HEPATITIS B SURFACE AG Negative (NEGATIVE)
[2018-06-15 00:23] LABS: HEPATITIS A IGM NEGATIVE (NEGATIVE); HEPATITIS B CORE AB NEGATIVE (NEGATIVE)
[2018-06-15 00:35] LABS: HEPATITIS C ANTIBODY NEGATIVE (NEGATIVE)
[2018-06-15 04:54] VITALS: BP 123/81; PULSE 67; RESP 16; TEMP 98.1; O2SAT 96
== END 2018-06-15 05:47 ==
LOC: C.ER 21:21
DX: F10.10 Alcohol abuse, uncomplicated (principal); Z72.0 Tobacco use
CPT/HCPCS: 80053; 80074; 82948; 85025; 86592; 86703; 86706; 96372; 99284; J2060; J3486